=== PATIENT | male | born 1955 | race Caucasian/White ===

== ENCOUNTER 2019-02-25 15:17 | Inpatient (IN) | payer MEDICARE, BC ==
[~2019-02-25] VITALS: Ht 184.2 cm; Wt 96.6 kg
[2019-02-25 18:30] VITALS: BP 108/56
[2019-02-25] MEDS ORDERED: LOSA100T50 PO (19:16)
[2019-02-25] MEDS ORDERED: LORA0.5T11 PO (19:16)
[2019-02-25] MEDS ORDERED: ANOR1AER INH (19:16)
[2019-02-25] MEDS ORDERED: TRAM50TA2 PO (19:16)
[2019-02-25] MEDS ORDERED: OMEP-218 PO (19:16)
[2019-02-25] MEDS ORDERED: VENTAER INH (19:16)
[2019-02-25] MEDS ORDERED: SIMV40TA2 PO (19:16)
[2019-02-25] MEDS ORDERED: POTA20TA6 PO (19:16)
[2019-02-25] MEDS ORDERED: IPRA0.00 NEB (19:16)
[2019-02-25] MEDS ORDERED: CAL-TAB2 PO (19:16)
[2019-02-25] MEDS ORDERED: METO50TA7 PO (19:16)
[2019-02-25] MEDS ORDERED: IRON65TA2 PO (19:16)
[2019-02-25] MEDS ORDERED: CYCL10TA PO (19:16)
[2019-02-25] MEDS ORDERED: ASPI81TA21 PO (19:16)
[2019-02-25] MEDS ORDERED: ISOS60TA2 PO (19:16)
[2019-02-25] MEDS ORDERED: ACETAMINOPHEN TAB 650MG DOSE (2X325MG) PO PRN (20:00)
[2019-02-25 20:18] LABS: HEMATOCRIT 30.2 % (42.0-52.0); HEMOGLOBIN 9.7 g/dl (13.5-17.5); MEAN CORPUSCULAR HEMOGLOBIN 30.7 pg (27.0-33.0); MEAN CORPUSCULAR HGB CONC 32.1 g/dl (32.0-36.5); MEAN CORPUSCULAR VOLUME 95.6 fl (80.0-96.0); PLATELET COUNT, AUTOMATED 225 10^3/uL (150-450); RED BLOOD COUNT 3.16 10^6/uL (4.30-6.10); WHITE BLOOD COUNT 10.8 10^3/uL (4.0-10.0)
--- NOTE | 2019-02-25 20:24 | HPEPDOC ---
General Date of Admission Feb 25, 2019 at 17:25 Date of Service: Feb 25, 2019 Attending Physician: CATRACHO GONG MD Chief Complaint The patient is a 63-year-old male admitted with a reason for visit of Obstructive Pneumonia. Source: Patient, RN/MD Exam Limitations: No limitations Timing/Duration: Week(s) Severity: Moderate Associated Symptoms: Weakness, Mechanical fall History of Present Illness Patient is a 63-year-old male, past medical history significant for small cell lung cancer, hypertension, hyperlipidemia, nicotine dependence, transferred from [facility] on account of postobstructive pneumonia. Patient states he fell a week ago on his left side. Due to increased pain. He went to the emergency room today for pain management. He was diagnosed with lung cancer 3 years ago and had been receiving chemotherapy every 3 weeks under the management of [facility]. His last chemotherapy was October this year, patient states he had bronchitis and so his chemotherapy was placed on hold while waiting for clearance of bronc hitis. After bronchitis was resolved. Chemotherapy was not resumed. On evaluation at [facility], CT chest without contrast showed consolidation or mass involving his left lower lung. Patchy obesities were identified in the left upper lung. There was a large bulla in the left hilar region with a fluid level measuring 4 cm in size. There was near complete occlusion of the left mainstem bronchus due to left hilar mass. There was also report of significant mass effect upon the left main stem bronchus with near complete occlusion of the left mainstem bronchus. He was transferred to this facility for further evaluation and management. Home Medications Scheduled Aspirin (Aspir-Low) 81 Mg Tablet.dr, 81 MG PO DAILY, (Reported) Calcium/Magnesium/Zinc (Ttlgiwk-Lxzdwmajt-Zdzo Tablet) 1 Each Tablet, 1 TAB PO DAILY, (Reported) Ferrous Sulfate (Iron) 325 Mg Tablet, 325 MG PO DAILY, (Reported) Isosorbide Mononitrate (Isosorbide Mononitrate ER) 60 Mg Tab.er.24h, 60 MG PO DAILY, (Reported) Losartan Potassium (Losartan Potassium) 100 Mg Tablet, 100 MG PO DAILY, (Reported) Metoprolol Tartrate (Metoprolol Tartrate) 50 Mg Tablet, 50 MG PO DAILY, (Reported) Omeprazole (Omeprazole) 20 Mg Capsule.dr, 20 MG PO DAILY, (Reported) Potassium Chloride (Potassium Chloride) 20 Meq Tab.er.prt, 20 MEQ PO DAILY, (Reported) Simvastatin (Simvastatin) 40 Mg Tablet, 40 MG PO DAILY, (Reported) Umeclidinium Brm/Vilanterol Tr (Anoro Ellipta 62.5-25 Mcg INH) 1 Each Blst.w.dev, 1 PUFF INH DAILY, (Reported) Scheduled PRN Albuterol Sulfate (Ventolin Hfa) 18 Gm Hfa.aer.ad, 2 PUFF INH Q4H PRN for SOB/WHEEZING, (Reported) Cyclobenzaprine HCl (Cyclobenzaprine HCl) 10 Mg Tablet, 10 MG PO TID PRN for MUSCLE SPASMS, (Reported) Ipratropium/Albuterol Sulfate (Iprat-Albut 0.5-3(2.5) mg/3 ml) 3 Ml Ampul.neb, 1 BELEN NEB QID PRN for SOB/WHEEZING, (Reported) Lorazepam (Lorazepam) 0.5 Mg Tablet, 0.5 MG PO BID PRN for ANXIETY, (Reported) Tramadol HCl (Tramadol HCl) 50 Mg Tablet, 50 MG PO Q6H PRN for PAIN, (Reported) Allergies Coded Allergies: No Known Allergies (Unverified , 02/25/19) Past Medical History Medical History Small cell lung cancer Hypertension Hyperlipidemia CAD status post stenting Atrial fibrillation Skin cancer COPD Question for possible bony kidney disease Gout Obstructive sleep apnea Anxiety Nicotine dependence Polysubstance abuse Surgical History Left eye surgery Lumbar surgery Coronary stents Family History Significant Family History: Hypertension Social History * Smoker: current smoker Alcohol: occationally Drugs: marijuana A-FIB/CHADSVASC A-FIB History Current/History of A-Fib/PAF?: Yes Current PO Anticoag Therapy: No Review of Systems Other systems A pertinent 10 point review of systems is completed, negative except as stated in the history of presenting illness. Physical Examination Other physical findings GENERAL: NAD SKIN : Warm, dry healing left posterior contusion HEENT: Atraumatic, left orbital surgical changes, moist mucous membrane CARDIOVASCULAR: irregular rate and rhythm, tachycardic, , no JVD, no edema, distal pulses + and palpable RESP: posterior inspiratory wheezes, no accessory muscle use noted ABDOMEN: BS+ non distended non tender MS: no joint deformities NEURO: Alert and oriented x 3, CN2-12 grossly intact PSYCH: no anxiety or agitation, appropriate mood and affect. Vital Signs Vital Signs Date Time Temp Pulse Resp B/P (MAP) Pulse Ox O2 Delivery O2 Flow Rate FiO2 02/25/19 18:30 97.3 110 20 108/56 (73) 96 Assessment/Plan Squamous cell lung cancer -With left main stem bronchus blockage seen on CT imaging study - pulmonology and oncology will need to be consulted in the a.m. -Will need to obtain records from patient's oncologist to determine progression or stabilization of disease Postobstructive pneumonia -Patient was started on vancomycin and Zosyn at another facility, continue -Scheduled bronchodilators, respiratory support with supplemental oxygen as needed and monitoring of oxygen saturation to keep greater than 94% Atrial fibrillation -12-lead EKG now to assess if patient is in rapid ventricular response -He denies any prior use of anticoagulation therapy Renal insufficiency -Unclear if this is new or old for patient, he denies any prior renal issues -Monitor renal function -Avoid nephrotoxic medications Obstructive sleep apnea -CPAP daily at bedtime DVT prophylaxis Lovenox daily Plan / VTE VTE Prophylaxis Ordered?: Yes COREY VERDE [employer]OWS [employer] ADMINISTRATOR Feb 25, 2019 20:23
[2019-02-25] MEDS ORDERED: LORazepam 0.5 MG TAB PO PRN (20:30)
[2019-02-25 20:46] LABS: CALCIUM LEVEL 8.6 MG/DL (8.8-10.2); CREATININE FOR GFR 1.56 MG/DL (0.70-1.30); GLOMERULAR FILTRATION RATE 47.9 (>49); POTASSIUM SERUM 3.9 MEQ/L (3.5-5.1)
--- NOTE | 2019-02-25 21:54 | PHACANCOPD ---
PHARMACY VANCOMYCIN DOSING Pt Demographics Demographics Patient Age:63 , Weight:88.100 , Gender: male Adjusted Body Weight Events Past 24 Hours Events Past 24 Hours: NO: Dialysis, Diuretic Therapy, Change in CrCl, Fever, Elevation in WBC, Pending Diagnostics, Pending Procedures, Other Vancomycin Vancomycin indication: OBSTRUCTIVE PNA Vancomycin Target Ranges: 15-20 mcg/ml Vancomycin Load Y/N: No Load Dose Date Time Vancomycin Load Dose: Date: Time: Vancomycin Dose Date: 02/25/19. Current Vancomycin Dose: [RECEIVED VANCO 1GM IV at 14:00 TODAY BEFORE TRANSFER TO [facility]] Intermittent Dosing?: No Labs Labs Laboratory Tests 02/25/19 19:53 Red Blood Count 3.16 L, Mean Corpuscular Volume 95.6, Mean Corpuscular Hemoglobin 30.7, Mean Corpuscular Hemoglobin Concent 32.1, Red Cell Distribution Width 14.0, Calcium Level 8.6 L Creatinine Clearance Date:02/25/19. Creatinine Clearance: [>50 ml/min]. Pending Labs VANCO TR 02/26 13:00 Assessment and Plan Maintaining Current Dose?: Yes Reason for dose change: No Dose Change Pharmacist Note Pharmacist Note Date: 02/25/19. PharmD note: CONTINUE WITH VANCO 1GM IV Q12H (next dose at 02:00 02/26). We will obtain a Vanco trough prior to tomorrows 14:00 dose and continue from there. JIM [facility] Feb 25, 2019 21:54
[2019-02-25] MEDS: PIPERACILLIN/TAZOBACTAM SOD 3.375 GM in D5W MINI-BAG PLUS 50 ML IV SCH (22:04)
[2019-02-26] VITALS (7 sets, daily range): BP systolic 88–135; BP diastolic 56–76
[2019-02-26] MEDS: IPRATROPIUM 0.5MG/ALBUTEROL 2.5MG INH SOL UD 3ML (DUONEB)(J7620) NEB SCH ×4 (01:42→20:00)
[2019-02-26] MEDS: VANCOMYCIN HCL 1,000 MG, VIAL MATE ADAPTER 1 EACH in D5W 250 ML IV SCH ×2 (01:47→15:15)
[2019-02-26] MEDS: PIPERACILLIN/TAZOBACTAM SOD 3.375 GM in D5W MINI-BAG PLUS 50 ML IV SCH ×4 (02:53→20:20)
[2019-02-26 05:30] LABS: HEMATOCRIT 25.6 % (42.0-52.0); HEMOGLOBIN 8.3 g/dl (13.5-17.5); MEAN CORPUSCULAR HEMOGLOBIN 30.7 pg (27.0-33.0); MEAN CORPUSCULAR HGB CONC 32.4 g/dl (32.0-36.5); MEAN CORPUSCULAR VOLUME 94.8 fl (80.0-96.0); PLATELET COUNT, AUTOMATED 169 10^3/uL (150-450); WHITE BLOOD COUNT 8.8 10^3/uL (4.0-10.0)
[2019-02-26 06:04] LABS: BLOOD UREA NITROGEN 15 MG/DL (7-18); CARBON DIOXIDE LEVEL 23 MEQ/L (21-32); CHLORIDE LEVEL 105 MEQ/L (98-107); CREATININE FOR GFR 1.27 MG/DL (0.70-1.30); GLOMERULAR FILTRATION RATE > 60.0 (>49); GLUCOSE, FASTING 92 MG/DL (70-100); SODIUM LEVEL 136 MEQ/L (136-145)
[2019-02-26] MEDS: ISOSORBIDE MON. (IMDUR) 60 MG XR TAB PO SCH (07:46)
[2019-02-26] MEDS: SIMVASTATIN 40 MG TAB PO SCH (07:46)
[2019-02-26] MEDS: POTASSIUM CHLORIDE 10 MEQ SR TABLET PO SCH (07:46)
[2019-02-26] MEDS: FERROUS SULFATE 325MG TAB PO SCH (07:46)
[2019-02-26] MEDS: ASPIRIN 81 MG ENTERIC TAB PO SCH (07:46)
[2019-02-26] MEDS: ENOXAPARIN 40 MG/0.4 ML SYRINGE (J1650) SC SCH (07:47)
[2019-02-26] MEDS: LOSARTAN 50 MG TAB PO SCH (07:47)
[2019-02-26] MEDS ORDERED: METOPROLOL TART 50 MG TAB PO SCH (09:00)
--- NOTE | 2019-02-26 09:37 | REP ---
PORTABLE CHEST: AP portable view of the chest was performed. I have no prior study for comparison. Diffuse infiltrates are seen throughout the left lung. Right lung appears clear. Heart size is not well evaluated as the left heart border is not well visualized. There is some calcification of the thoracic aorta. There is a right central venous catheter with the tip in the superior vena cava. Electronically Signed by Joaquin Finney MD 02/26/2019 07:24 P
[2019-02-26] MEDS ORDERED: SUPR400C PO (10:18)
--- NOTE | 2019-02-26 11:10 | IPNPDOC ---
Subjective Date Seen The patient was seen on 02/26/19. Subjective Chief Complaint/HPI Patient was to go home. Doesn't wish to stay in the hospital. As per patient, he is feeling much better General: Denies: ROS Unobtainable, Chills, Night Sweats, Fatigue, Malaise, Normal Appetite, Other Symptoms Constitutional: Denies: Chills, Fever, Malaise, Night Sweats, Weakness, Fatigue, Weight Loss, Lethargy, Other Eyes: Denies: Pain, Vision change, Conjunctivae inflammation, Eyelid inflammation, Redness, Other ENT: Denies: Head Aches, Ear Pain, Dysphagia, Sinus Congestion, Post Nasal Drip, Sore Throat, Epistaxis, Other Symptoms Skin: Denies: Rash, Lesions, Jaundice, Bruising, Itching, Dry, Breakdown, Nail Changes, Other Pulmonary: Reports: Dyspnea, Cough Cardiovascular: Denies: Chest Pain, Palpitations, Orthopnea, Paroxysmal Noc. Dyspnea, Edema, Lt Headedness, Other Symptoms Gastrointestinal: Denies: Nausea, Vomiting, Abdominal Pain, Diarrhea, Constipa tion, Melena, Hematochezia, Other Symptoms Genitourinary: Denies: Dysuria, Frequency, Incontinence, Hematuria, Retention, Other Symptoms Hematologic: Denies: Bruising, Bleeding Excessively, Petecchia, Purpura, Enlarged Lymph Nodes, Other Hematologic Endocrine: Denies: Polydipsia, Polyphagia, Polyuria, Heat Intolerance, Cold Intolerance, Other Endocrine Sx Musculoskeletal: Denies: Neck Pain, Back Pain, Shoulder Pain, Arm Pain, Hand Pain, Leg Pain, Foot Pain, Joint Pain, Muscle Pain, Spasms, Other Symptoms Neurological: Denies: Weakness, Numbness, Incoordination, Change in speech, Confusion, Seizures, Other Symptoms Psych: Denies: Mood Normal, Anxiety, Depression, Memory Issues, Thoughts of Self Harm, Anger, Thoughts of Harming Other, Other Psych Objective Physical Examination General Exam: Positive: Alert Eye Exam: Positive: PERRLA, Conjunctiva & lids normal Neck Exam: Positive: Supple Chest Exam: Positive: Other (decreased breath sounds bilaterally. No added sound audible) Heart Exam: Positive: Irregular Rhythm, Normal S1, Normal S2 Telemetry: Positive: Atrial fibrillation Abdomen Exam: Positive: Normal bowel sounds, Soft Skin Exam: Positive: Nl turgor and temperature Neuro Exam: Positive: Normal Speech, Cranial Nerves 3-12 NL Psych Exam: Positive: Mental status NL, Oriented x 3 Assessment /Plan Problems (1) Pneumonia Problem Text: Continue Zosyn and vancomycin pt seems to be responding to IV antibiotics He is very reluctant staying in the hospital. Try to convince him to stay at least 24-48 hours, then can be discharged on oral antibx Will hold off on the pulmonary consultation as patient can follow with his rod placer and oncologist as an outpatient Repeat a.m. level work (2) Afib Problem Text: Rectal not under well control Increase metoprolol to 50 mg by mouth twice a day Monitored closely If beta blockers, ineffective, then we'll try calcium channel blockers Continue present care Plan/VTE VTE Prophylaxis Ordered?: Yes VS, I&O, 24H, Fishbone Vital Signs/I&O Vital Signs Date Time Temp Pulse Resp B/P (MAP) Pulse Ox O2 Delivery O2 Flow Rate FiO2 02/26/19 08:00 97.6 139 20 120/64 (82) 97 02/26/19 07:30 2.0 I&O- Last 24 Hours up to 6 AM 02/26/19 06:00 Intake Total 370 ml Output Total 325 ml Balance 45 ml Laboratory Data 24H LABS Laboratory Tests 2 02/25/19 19:53: Nucleated Red Blood Cells % (auto) 0.0, Anion Gap 8, Glomerular Filtration Rate 47.9L, Blood Urea Nitrogen 18, Creatinine 1.56H, Sodium Level 137, Potassium Level 3.9, Chloride Level 104, Carbon Dioxide Level 25, Calcium Level 8.6L 02/26/19 05:14: Nucleated Red Blood Cells % (auto) 0.0, Anion Gap 8, Glomerular Filtration Rate > 60.0, Blood Urea Nitrogen 15, Creatinine 1.27, Sodium Level 136, Potassium Level 4.0, Chloride Level 105, Carbon Dioxide Level 23, Calcium Level 8.0L CBC/BMP Laboratory Tests 02/25/19 19:53 Red Blood Count 3.16 L, Mean Corpuscular Volume 95.6, Mean Corpuscular Hemoglobin 30.7, Mean Corpuscular Hemoglobin Concent 32.1, Red Cell Distribution Width 14.0, Calcium Level 8.6 L 02/26/19 05:14 Red Blood Count 2.70 L, Mean Corpuscular Volume 94.8, Mean Corpuscular Hemoglobin 30.7, Mean Corpuscular Hemoglobin Concent 32.4, Red Cell Distribution Width 13.9, Calcium Level 8.0 L EMELYN MORE MD Feb 26, 2019 11:10
[2019-02-26] MEDS: METOPROLOL TART 50 MG TAB PO SCH (20:20)
--- NOTE | 2019-02-27 00:27 | ECGEPIP ---
[facility] Test Date: 2019-02-25 Pat Name: YONG HUANG Department: Room: [place] [address] Gender: Male [employer]: : [id number] Requested By: COREY CLINE Order Number: [id number] Reading MD: Christian Hart Measurements Intervals [place] Rate: 118 P: DE: -1 QRS: 26 QRSD: 90 T: QT: 292 QTc: 410 Interpretive Statements ATRIAL FIBRILLATION WITH RAPID VENTRICULAR RESPONSE WITH ABERRANT CONDUCTION OR V VENTRICULAR PREMATURE COMPLEXES Baseline artifact Electronically Signed on 02-27-2019 0:27:13 EDT by Christian Hart
[2019-02-27] MEDS: VANCOMYCIN HCL 1,000 MG, VIAL MATE ADAPTER 1 EACH in D5W 250 ML IV SCH ×2 (01:18→13:59)
[2019-02-27] MEDS: IPRATROPIUM 0.5MG/ALBUTEROL 2.5MG INH SOL UD 3ML (DUONEB)(J7620) NEB SCH ×4 (02:00→20:00)
[2019-02-27] MEDS: PIPERACILLIN/TAZOBACTAM SOD 3.375 GM in D5W MINI-BAG PLUS 50 ML IV SCH ×4 (03:41→20:06)
[2019-02-27 04:00] VITALS: BP 91/53
[2019-02-27 08:00] VITALS: BP 93/52
[2019-02-27] MEDS: ISOSORBIDE MON. (IMDUR) 60 MG XR TAB PO SCH (09:00)
[2019-02-27] MEDS: SIMVASTATIN 40 MG TAB PO SCH (09:14)
[2019-02-27] MEDS: POTASSIUM CHLORIDE 10 MEQ SR TABLET PO SCH (09:14)
[2019-02-27] MEDS: LOSARTAN 50 MG TAB PO SCH (09:14)
[2019-02-27] MEDS: ENOXAPARIN 40 MG/0.4 ML SYRINGE (J1650) SC SCH (09:15)
[2019-02-27] MEDS: ASPIRIN 81 MG ENTERIC TAB PO SCH (09:15)
[2019-02-27] MEDS: METOPROLOL TART 50 MG TAB PO SCH ×2 (09:15→20:06)
[2019-02-27] MEDS: FERROUS SULFATE 325MG TAB PO SCH (09:15)
[2019-02-27 12:00] VITALS: BP 102/63
[2019-02-27 16:00] VITALS: BP 118/75
[2019-02-27 20:00] VITALS: BP 122/80
[2019-02-28 00:21] VITALS: BP 98/50
[2019-02-28] MEDS: IPRATROPIUM 0.5MG/ALBUTEROL 2.5MG INH SOL UD 3ML (DUONEB)(J7620) NEB SCH ×2 (01:58→07:17)
[2019-02-28] MEDS: VANCOMYCIN HCL 1,000 MG, VIAL MATE ADAPTER 1 EACH in D5W 250 ML IV SCH (02:20)
[2019-02-28] MEDS: PIPERACILLIN/TAZOBACTAM SOD 3.375 GM in D5W MINI-BAG PLUS 50 ML IV SCH ×2 (03:45→08:57)
[2019-02-28 04:00] VITALS: BP 94/62
[2019-02-28 05:22] VITALS: BP 120/80
[2019-02-28 05:47] LABS: BASO % 0.4 % (0.0-1.0); EOS # 0.1 10^3/uL (0.0-0.50); EOS % 1.5 % (0.0-3.0); HEMATOCRIT 28.2 % (42.0-52.0); HEMOGLOBIN 9.3 g/dl (13.5-17.5); LYMPH # 0.8 10^3/uL (1.5-4.5); LYMPH % 8.2 % (24.0-44.0); MEAN CORPUSCULAR HEMOGLOBIN 30.5 pg (27.0-33.0); MEAN CORPUSCULAR VOLUME 92.5 fl (80.0-96.0); MONO # 0.8 10^3/uL (0.0-0.8); MONO % 7.9 % (0.0-5.0); NEUTROPHILS # 7.6 10^3/uL (1.8-7.7); NEUTROPHILS % 80.5 % (36.0-66.0); PLATELET COUNT, AUTOMATED 226 10^3/uL (150-450); RED BLOOD COUNT 3.05 10^6/uL (4.30-6.10); WHITE BLOOD COUNT 9.5 10^3/uL (4.0-10.0)
[2019-02-28 06:15] LABS: BLOOD UREA NITROGEN 8 MG/DL (7-18); CARBON DIOXIDE LEVEL 25 MEQ/L (21-32); CHLORIDE LEVEL 102 MEQ/L (98-107); CREATININE FOR GFR 1.01 MG/DL (0.70-1.30); GLOMERULAR FILTRATION RATE > 60.0 (>49); GLUCOSE, FASTING 79 MG/DL (70-100); POTASSIUM SERUM 3.7 MEQ/L (3.5-5.1); SODIUM LEVEL 134 MEQ/L (136-145)
[2019-02-28 06:16] LABS: ALBUMIN 1.8 GM/DL (3.2-5.2); ALT/SGPT 21 U/L (12-78); BILIRUBIN,TOTAL 0.6 MG/DL (0.2-1.0); CALCIUM LEVEL 8.8 MG/DL (8.8-10.2); MAGNESIUM LEVEL 0.8 MG/DL (1.8-2.4); TOTAL PROTEIN 7.3 GM/DL (6.4-8.2)
[2019-02-28] MEDS: MAG SULF 1GM/100ML (MAG RUN) 1 GM in APPROPRIATE DILUENT 1 EA IV SCH ×2 (07:51→08:57)
[2019-02-28 08:00] VITALS: BP 122/65
[2019-02-28] MEDS: ENOXAPARIN 40 MG/0.4 ML SYRINGE (J1650) SC SCH (08:57)
[2019-02-28] MEDS: FERROUS SULFATE 325MG TAB PO SCH (08:57)
[2019-02-28] MEDS: ASPIRIN 81 MG ENTERIC TAB PO SCH (08:57)
[2019-02-28 08:58] VITALS: BP 122/65
[2019-02-28] MEDS: METOPROLOL TART 50 MG TAB PO SCH (08:58)
[2019-02-28] MEDS: LOSARTAN 50 MG TAB PO SCH (08:58)
[2019-02-28] MEDS: POTASSIUM CHLORIDE 10 MEQ SR TABLET PO SCH (08:58)
[2019-02-28] MEDS: ISOSORBIDE MON. (IMDUR) 60 MG XR TAB PO SCH (08:58)
[2019-02-28] MEDS ORDERED: SODIUM CHLORIDE 0.9% INJ 10 ML SYR IV PRN (10:30)
--- NOTE | 2019-02-28 13:47 | IPNPDOC ---
Text Note Date of Service The patient was seen on 02/28/19. NOTE I saw and examined the pt in the morning. Pt denies any acute complaints. Denies any chest pain or shortness of breath. No acute events reported by RN overnight. I reviewed the VS, I and O, Labs, imaging and all pertinent clinical data. Pt states he would like to leave the hospital. He states he does not want to be in hospital any more. It was discussed with pt the course of clinical finding and management plan for him. Also, it was discussed with pt the risks of leaving hospital including disability and , pt verbalized understanding however, adamantly refused to continue admission in the hospital. RN has prepared the AMA form. Course of PO antibiotic is ordered for pt to take upon leaving the hospital for 7 days. Pt was instructed to return to ED with any acute medical problem. Please see discharge summary for further details. Vital Signs Date Time Temp Pulse Resp B/P (MAP) Pulse Ox O2 Delivery O2 Flow Rate FiO2 02/28/19 08:58 110 122/65 02/28/19 08:58 122/65 02/28/19 08:58 122/65 02/28/19 08:00 97.5 110 20 122/65 (84) 97 02/28/19 05:24 107 120/80 02/28/19 05:22 107 120/80 (93) 02/28/19 04:00 98.4 114 18 94/62 (73) 99 02/28/19 00:21 98/50 (66) 02/28/19 00:00 87 98/50 02/27/19 23:59 97.4 94 20 100 02/27/19 20:06 95 122/80 02/27/19 20:00 98.7 95 18 122/80 (94) 99 02/27/19 17:33 93 118/75 02/27/19 16:00 98.0 93 18 118/75 (89) 99 Intake & Output 02/28/19 06:00 Intake Total 990 ml Output Total 950 ml Balance 40 ml Laboratory Tests 02/28/19 05:26: White Blood Count 9.5, Red Blood Count 3.05L, Hemoglobin 9.3L, Hematocrit 28.2L, Mean Corpuscular Volume 92.5, Mean Corpuscular Hemoglobin 30.5, Mean Corpuscular Hemoglobin Concent 33.0, Red Cell Distribution Width 13.7, Platelet Count 226, Neutrophils (%) (Auto) 80.5H, Lymphocytes (%) (Auto) 8.2L, Monocytes (%) (Auto) 7.9H, Eosinophils (%) (Auto) 1.5, Basophils (%) (Auto) 0.4, Neutrophils # (Auto) 7.6, Lymphocytes # (Auto) 0.8L, Monocytes # (Auto) 0.8, Eosinophils # (Auto) 0.1, Basophils # (Auto) 0.0, Immature Granulocyte % (Auto) 1.5, Nucleated Red Blood Cells % (auto) 0.0, Blood Urea Nitrogen 8, Creatinine 1.01, Sodium Level 134L, Potassium Level 3.7, Chloride Level 102, Carbon Dioxide Level 25, Calcium Level 8.8, Aspartate Amino Transf (AST/SGOT) 26, Alanine Aminotransferase (ALT/SGPT) 21, Alkaline Phosphatase 60, Total Bilirubin 0.6, Total Protein 7.3, Albumin 1.8L, Anion Gap 7L, Glomerular Filtration Rate > 60.0, Fasting Glucose 79, Magnesium Level 0.8*L, Albumin/Globulin Ratio 0.33L VS,Fishbone, I+O VS, Fishbone, I+O Laboratory Tests 02/28/19 05:26 Red Blood Count 3.05 L, Mean Corpuscular Volume 92.5, Mean Corpuscular Hemoglobin 30.5, Mean Corpuscular Hemoglobin Concent 33.0, Red Cell Distribution Width 13.7, Neutrophils (%) (Auto) 80.5 H, Lymphocytes (%) (Auto) 8.2 L, Monocytes (%) (Auto) 7.9 H, Eosinophils (%) (Auto) 1.5, Basophils (%) (Auto) 0.4, Neutrophils # (Auto) 7.6, Lymphocytes # (Auto) 0.8 L, Monocytes # (Auto) 0.8, Eosinophils # (Auto) 0.1, Basophils # (Auto) 0.0, Calcium Level 8.8, Aspartate Amino Transf (AST/SGOT) 26, Alanine Aminotransferase (ALT/SGPT) 21, Alkaline Phosphatase 60, Total Bilirubin 0.6, Total Protein 7.3, Albumin 1.8 L Vital Signs Date Time Temp Pulse Resp B/P (MAP) Pulse Ox O2 Delivery O2 Flow Rate FiO2 02/28/19 08:58 110 122/65 02/28/19 08:00 97.5 20 97 02/26/19 07:30 2.0 I&O- Last 24 Hours up to 6 AM 02/28/19 06:00 Intake Total 990 ml Output Total 950 ml Balance 40 ml BAIRON ANAYA MD Feb 28, 2019 13:47
[2019-02-28] MEDS ORDERED: SIMVASTATIN 10 MG TAB PO SCH (21:00)
[2019-03-01] MEDS ORDERED: SODIUM CHLORIDE 0.9% INJ 10 ML SYR IV SCH (09:00)
--- NOTE | 2019-03-01 18:24 | DS.PDOC ---
Discharge Summary General Date of Admission Feb 25, 2019 at 17:25 Date of Discharge 02/28/2019 Discharge Summary PROCEDURES PERFORMED DURING STAY: [None]. ADMITTING DIAGNOSES: 1. Health Care Associated Pneumonia, Lt lung 2. Atrial Fibrillation with RVR 3. VINITA 4. Hx of small cell lung cancer s/p chemotherapy 5. Hx of HERMINIA 6. Left hilar mass with near complete obstruction 7. Large bulla with fluid level Lt lung 8. Hypomagnesemia DISCHARGE DIAGNOSES: same COMPLICATIONS/CHIEF COMPLAINT: Obstructive Pneumonia. HISTORY OF PRESENT ILLNESS: Patient is a 63-year-old male, past medical history significant for small cell lung cancer, hypertension, hyperlipidemia, nicotine dependence, transferred from [facility] on account of postobstructive pneumonia. Patient states he fell a week ago on his left side. Due to increased pain. He went to the emergency room today for pain management. He was diagnosed with lung cancer 3 years ago and had been receiving chemotherapy every 3 weeks under the management of [facility]. His last chemotherapy was October this year, patient states he had bronchitis and so his chemotherapy was placed on hold while waiting for clearance of bronchitis. After bronchitis was resolved. Chemotherapy was not resumed. On evaluation at [facility], CT chest without contrast showed consolidation or mass involving his left lower lung. Patchy obesities were identified in the left upper lung. There was a large bulla in the left hilar region with a fluid level measuring 4 cm in size. There was near complete occlusion of the left mainstem bronchus due to left hilar mass. There was also report of significant mass effect upon the left main stem bronchus with near complete occlusion of the left mainstem bronchus. He was transferred to this facility for further evaluation and management. HOSPITAL COURSE: Pt was admitted to [facility] with above presentation. Pt received standard nursing care, monitoring VS, continuous telemonitoring for Afib with RVR, IVF NS resuscitation, home meds, broad spectrum antibiotics in view of PNA in a lung cancer pt with Lt hilar mass resulting in near complete occlusion. Pt showed clinical improvement, however decided to leave against medical advice. Pt stated he would like to leave the hospital. He stated he does not want to be in hospital any more. It was discussed with pt the course of clinical finding and management plan for him. Also, it was discussed with pt the risks of leaving hospital including disability and , pt verbalized understanding however, adamantly refused to continue admission in the hospital. RN has prepared the AMA form. Course of PO antibiotic is ordered for pt to take upon leaving the hospital for 7 days. Pt was instructed to return to ED with any acute medical problem. Pt was instructed to F/U with his sample hand and oncologist as outpt. DISCHARGE MEDICATIONS: Please see below. ALLERGIES: Please see below. PHYSICAL EXAMINATION ON DISCHARGE: GENERAL: pt is awake and alert, oriented, pt is in no acute distress SKIN : Warm, dry healing left posterior contusion HEENT: Atraumatic, left orbital surgical changes, moist mucous membrane CARDIOVASCULAR: irregular rate and rhythm, tachycardic, , no JVD, no edema, distal pulses + and palpable RESP: posterior inspiratory wheezes, no accessory muscle use noted ABDOMEN: BS+ non distended non tender MS: no joint deformities NEURO: Alert and oriented x 3, CN2-12 grossly intact PSYCH: no anxiety or agitation, appropriate mood and affect. LABORATORY DATA: Please see below. IMAGING: Pt with CT chest from outside facility with report as mentioned in HPI CXR Portable 02/26/19 Report: AP portable view of the chest was performed. I have no prior study for comparison. Diffuse infiltrates are seen throughout the left lung. Right lung appears clear. Heart size is not well evaluated as the left heart border is not well visualized. There is some calcification of the thoracic aorta. There is a right central venous catheter with the tip in the superior vena cava. PROGNOSIS: Guarded ACTIVITY: [As tolerated]. DISPOSITION: 07 Against Medical Advice. DISCHARGE INSTRUCTIONS: 1. Take PO Antibiotic as prescribed for 7 days 2. Return to ED with any fever, chest pain, syncope, shortness of breath ITEMS TO FOLLOWUP ON ON OUTPATIENT: 1. F/U Oncology as per schedule DISCHARGE CONDITION: guarded TIME SPENT ON DISCHARGE: Greater than 30 minutes. Vital Signs/I&Os Vital Signs Date Time Temp Pulse Resp B/P (MAP) Pulse Ox O2 Delivery O2 Flow Rate FiO2 02/28/19 08:58 110 122/65 02/28/19 08:00 97.5 20 97 02/26/19 07:30 2.0 I&O- Last 24 Hours up to 6 AM 03/01/19 06:00 Intake Total 300 ml Output Total 300 ml Balance 0 ml Discharge Medications Scheduled Aspirin (Aspir-Low) 81 Mg Tablet., 81 MG PO DAILY, (Reported) Calcium/Magnesium/Zinc (Wublrcn-Hcqvfpret-Qgzm Tablet) 1 Each Tablet, 1 TAB PO DAILY, (Reported) Cefixime (Suprax) 400 Mg Capsule, 400 MG PO DAILY Ferrous Sulfate (Iron) 325 Mg Tablet, 325 MG PO DAILY, (Reported) Isosorbide Mononitrate (Isosorbide Mononitrate ER) 60 Mg Tab.er.24h, 60 MG PO DAILY, (Reported) Losartan Potassium (Losartan Potassium) 100 Mg Tablet, 100 MG PO DAILY, (Reported) Metoprolol Tartrate (Metoprolol Tartrate) 50 Mg Tablet, 50 MG PO DAILY, (Reported) Omeprazole (Omeprazole) 20 Mg Capsule.dr, 20 MG PO DAILY, (Reported) Potassium Chloride (Potassium Chloride) 20 Meq Tab.er.prt, 20 MEQ PO DAILY, (Reported) Simvastatin (Simvastatin) 40 Mg Tablet, 40 MG PO DAILY, (Reported) Umeclidinium Brm/Vilanterol Tr (Anoro Ellipta 62.5-25 Mcg INH) 1 Each Blst.w.dev, 1 PUFF INH DAILY, (Reported) Scheduled PRN Albuterol Sulfate (Ventolin Hfa) 18 Gm Hfa.aer.ad, 2 PUFF INH Q4H PRN for SOB/WHEEZING, (Reported) Cyclobenzaprine HCl (Cyclobenzaprine HCl) 10 Mg Tablet, 10 MG PO TID PRN for MUSCLE SPASMS, (Reported) Ipratropium/Albuterol Sulfate (Iprat-Albut 0.5-3(2.5) mg/3 ml) 3 Ml Ampul.neb, 1 BELEN NEB QID PRN for SOB/WHEEZING, (Reported) Lorazepam (Lorazepam) 0.5 Mg Tablet, 0.5 MG PO BID PRN for ANXIETY, (Reported) Tramadol HCl (Tramadol HCl) 50 Mg Tablet, 50 MG PO Q6H PRN for PAIN, (Reported) Allergies Coded Allergies: No Known Allergies (Unverified , 02/25/19) BAIRON ANAYA MD Mar 01, 2019 18:24
== END 2019-02-28 11:36 | disposition left against medical advice (07) | DRG 194 ==
LOC: M PCU 17:25
PROVIDERS: ADMIT Internal Medicine; ATTEND Hospitalist
DX: J18.9 Pneumonia, unspecified organism (principal); C34.32 Malignant neoplasm of lower lobe, left bronchus or lung; N17.9 Acute kidney failure, unspecified; E83.42 Hypomagnesemia; G47.33 Obstructive sleep apnea (adult) (pediatric); J43.9 Emphysema, unspecified; I10 Essential (primary) hypertension; E78.5 Hyperlipidemia, unspecified; F17.200 Nicotine dependence, unspecified, uncomplicated; Z79.899 Other long term (current) drug therapy; Z79.82 Long term (current) use of aspirin; I25.10 Atherosclerotic heart disease of native coronary artery without angina pectoris; Z95.2 Presence of prosthetic heart valve; M10.9 Gout, unspecified; F41.9 Anxiety disorder, unspecified